=== PATIENT | male | born 1990 | race Caucasian/White ===

== ENCOUNTER 2020-10-11 16:03 | Emergency (ER) | payer OTHER ==
[~2020-10-11] VITALS: Ht 170.2 cm; Wt 86.2 kg
[2020-10-11 16:03] VITALS: BP 108/80
[2020-10-11] MEDS ORDERED: BUPR-54 PO (16:48)
[2020-10-11] MEDS ORDERED: CEFEPIME 1 GM in IV D5W 50 ML IV ONE (17:00)
[2020-10-11] MEDS ORDERED: IV NS 0.9% 1,000 ML BAG IV ONE ×2 (17:00)
[2020-10-11] MEDS ORDERED: VANCOMYCIN 1 GM in IV D5W 250 ML IV ONE (17:00)
--- NOTE | 2020-10-11 17:03 | NUR ---
BIB SELF C/O [facility] ABSCESS X 1 WEEK. AAOX4, VSS. RR EVEN & UNLABORED. DENIES CP, SOB, DIZZINESS, N/V AT THIS TIME. PT SEEN & EVAL'D BY DR. FONSECA. WILL CONT TO MONITOR.
--- NOTE | 2020-10-11 17:25 | NUR ---
MEDICATED PER ERMD ORDER, PT DESIREE WELL. WILL CONT TO MONITOR.
[2020-10-11 17:27] LABS: BASOPHILS % (AUTO) 0.3 % (0.0-2.0); EOSINOPHILS % (AUTO) 0.9 % (0.0-6.0); HEMATOCRIT 37 % (39-51); HEMOGLOBIN 12.2 g/dL (13.5-17.5); LYMPHOCYTES # (AUTO) 1.4 /CMM (0.8-4.8); LYMPHOCYTES % (AUTO) 10.3 % (20.0-44.0); MEAN CORPUSCULAR HGB CONC 33 g/dl (31.0-36.0); MEAN CORPUSCULAR VOLUME 84 fL (80-96); MONOCYTES # (AUTO) 1.2 /CMM (0.1-1.30); MONOCYTES % (AUTO) 8.4 % (2.0-12.0); NEUTROPHILS # (AUTO) 11.3 /CMM (1.8-8.9); NEUTROPHILS % (AUTO) 80.1 % (43.0-81.0); PLATELET COUNT (AUTO) 238 /CMM (150-450); RED BLOOD CELL COUNT(AUTO) 4.37 MIL/uL (4.5-6.0); WHITE BLOOD COUNT (AUTO) 14.1 K/uL (4.3-11.0)
[2020-10-11 17:53] LABS: CARBON DIOXIDE 31 mmol/L (21-32); CHLORIDE 98 mmol/L (98-107); GLUCOSE 102 mg/dL (74-106); POTASSIUM 3.2 mmol/L (3.5-5.1); SODIUM SERUM 135 mmol/L (136-145); UREA NITROGEN, BLOOD 12 mg/dL (7-18)
[2020-10-11 17:59] LABS: ALANINE AMINOTRANSFERASE 11 U/L (12-78); ALBUMIN 2.8 g/dL (3.4-5.0); ALKALINE PHOSPHATASE 78 U/L (46-116); ASPARTATE AMINOTRANSFERASE 14 U/L (15-37); BILIRUBIN,DIRECT 0.3 mg/dL (0.0-0.2); BILIRUBIN,TOTAL 0.8 mg/dL (0.2-1.0)
--- NOTE | 2020-10-11 18:02 | NUR ---
PT SIGNED AMA FORM. REFUSED VANCOMYCIN IVPB. ERMD AWARE. IV removed. Catheter intact and site benign. Pressure and 4x4 applied to site. No bleeding noted.
== END 2020-10-11 18:12 | disposition left against medical advice (07) ==
LOC: ER 16:07
DX: A41.9 Sepsis, unspecified organism (principal); L03.114 Cellulitis of left upper limb; L02.414 Cutaneous abscess of left upper limb; L03.113 Cellulitis of right upper limb; L02.413 Cutaneous abscess of right upper limb; R00.0 Tachycardia, unspecified; Z79.899 Other long term (current) drug therapy
CPT/HCPCS: 36415; 71045; 80048; 80076; 83605; 84145; 84484; 85025; 85730; 87040 ×2; 93005; 96365; 99291; J0692; J7030 ×2; J7060; J3370

== ENCOUNTER 2022-02-18 10:21 | Emergency (ER) | payer OTHER ==
[~2022-02-18] VITALS: Ht 170.2 cm; Wt 90.7 kg
[~2022-02-18 10:21] MED LIST: BUPR-54 PO
[2022-02-18 10:25] VITALS: BP 131/75
[2022-02-18] MEDS ORDERED: SULF1TAB48 PO (10:44)
[2022-02-18] MEDS ORDERED: IBUP-1955 PO (10:44)
[2022-02-18] MEDS ORDERED: CEPH500C2 PO (10:44)
[2022-02-18] MEDS ORDERED: SULFAMETH/TRIMETH 800/160 MG 1 UDTAB TABLET ONE (10:45)
[2022-02-18] MEDS ORDERED: BACI/NEOM/POLY B OINT PKT 1 UDPKT PACKET ONE (10:45)
[2022-02-18] MEDS ORDERED: CEPHALEXIN MONOHYDRATE 500 MG CAPSULE PO ONE ×2 (10:45→11:00)
--- NOTE | 2022-02-18 10:50 | NUR ---
dried scabs noted on BLE > on Left Leg. Medicated as ordered- tolerated well [employer] remains at bedside
[2022-02-18] MEDS ORDERED: BACI/NEOM/POLY B OINT PKT 1 UDPKT PACKET TP ONE (11:00)
[2022-02-18] MEDS ORDERED: SULFAMETH/TRIMETH 800/160 MG 1 UDTAB TABLET PO ONE (11:00)
--- NOTE | 2022-02-18 11:11 | NUR ---
seen and evaluated. medically cleared, was provided with wound care. discharged to [facility] in stable condition.
== END 2022-02-18 11:30 ==
LOC: ER 11:28
DX: L03.116 Cellulitis of left lower limb (principal); F15.10 Other stimulant abuse, uncomplicated; Z59.00 Homelessness unspecified; Z79.899 Other long term (current) drug therapy

== ENCOUNTER 2024-08-14 20:07 | Emergency (ER) | payer OTHER ==
[~2024-08-14] VITALS: Ht 175.3 cm; Wt 95.3 kg
[~2024-08-14 20:07] MED LIST changes: +CEPH500C2 PO; +IBUP-1955 PO; +SULF1TAB48 PO
[2024-08-14] MEDS ORDERED: NALOXONE PREFILLED SYRINGE 2 MG/2 ML SYRINGE ONE (23:44)
[2024-08-15] MEDS: IV NS 0.9% 1,000 ML IV ONE ×2 (00:03→00:26)
[2024-08-15 00:04] LABS: BASOPHILS # (AUTO) 0.1 K/uL (0.0-0.2); BASOPHILS % (AUTO) 0.8 % (0.0-2.0); EOSINOPHILS # (AUTO) 0.1 K/uL (0.0-0.7); EOSINOPHILS % (AUTO) 1.4 % (0.0-6.0); HEMATOCRIT 41 % (39-51); HEMOGLOBIN 14.2 g/dL (13.5-17.5); LYMPHOCYTES # (AUTO) 2.2 K/uL (0.8-4.8); LYMPHOCYTES % (AUTO) 34.8 % (20.0-44.0); MEAN CORPUSCULAR HEMOGLOBIN 30 PG (26.0-33.0); MEAN CORPUSCULAR HGB CONC 35 g/dl (31.0-36.0); MEAN CORPUSCULAR VOLUME 86 fL (80-96); MONOCYTES # (AUTO) 0.6 K/uL (0.1-1.30); MONOCYTES % (AUTO) 9.3 % (2.0-12.0); NEUTROPHILS # (AUTO) 3.4 K/uL (1.8-8.9); NEUTROPHILS % (AUTO) 53.7 % (43.0-81.0); PLATELET COUNT (AUTO) 208 K/uL (150-450); RED BLOOD CELL COUNT(AUTO) 4.76 MIL/uL (4.5-6.0); RED CELL DISTRIBUTION WIDTH 14.3 % (11.5-15.0); WHITE BLOOD COUNT (AUTO) 6.4 K/uL (4.3-11.0)
[2024-08-15] MEDS: NALOXONE HCL 0.4 MG/ML AMPUL IV ONE (00:04)
[2024-08-15 00:14] LABS: BARBITURATE, URINE NEGATIVE (NEGATIVE); BENZODIAZEPINE, URINE NEGATIVE (NEGATIVE); CANNABINOID, URINE NEGATIVE (NEGATIVE); COCCAINE, URINE NEGATIVE (NEGATIVE); OPIATE, URINE NEGATIVE (NEGATIVE); PHENCYCLIDINE SCREEN,URINE NEGATIVE (NEGATIVE)
[2024-08-15 00:18] LABS: ALANINE AMINOTRANSFERASE 27 U/L (12-78); ALBUMIN 3.7 g/dL (3.4-5.0); ALCOHOL, BLOOD < 3 mg/dL (0-10); ALKALINE PHOSPHATASE 73 U/L (46-116); ASPARTATE AMINOTRANSFERASE 36 U/L (15-37); BILIRUBIN,TOTAL 0.7 mg/dL (0.2-1.0); CALCIUM, SERUM 8.5 mg/dL (8.5-10.1); CARBON DIOXIDE 32 mmol/L (21-32); CHLORIDE 106 mmol/L (98-107); CREATININE 1.2 mg/dL (0.6-1.3); GLUCOSE 111 mg/dL (74-106); SODIUM SERUM 140 mmol/L (136-145); TOTAL PROTEIN, SERUM 6.9 g/dL (6.4-8.2); UREA NITROGEN, BLOOD 28 mg/dL (7-18)
[2024-08-15 00:19] LABS: APPEARANCE,URINE CLEAR (CLEAR); BILIRUBIN,URINE NEGATIVE (NEGATIVE); BLOOD, URINE NEGATIVE Ery/uL (NEGATIVE); COLOR,URINE YELLOW (YELLOW); KETONES,URINE NEGATIVE (NEGATIVE); LEUKOCYTE ESTERASE ,URINE NEGATIVE (NEGATIVE); NITRITE, URINE NEGATIVE (NEGATIVE); PH,URINE 5.5 (5.0-8.0); PROTEIN,URINE NEGATIVE (NEGATIVE); UGLUCOSE NEGATIVE (NEGATIVE); UROBILINOGEN,URINE 0.2 EU/dL (0.2)
[2024-08-15 00:44] LABS: AMPHETAMINE, URINE POSITIVE (NEGATIVE)
[2024-08-15 07:35] VITALS: BP 147/86; TEMP 99.4; O2SAT 95
== END 2024-08-15 19:18 ==
LOC: ER 20:09
DX: F19.10 Other psychoactive substance abuse, uncomplicated (principal); R94.31 Abnormal electrocardiogram [ECG] [EKG]; Z59.00 Homelessness unspecified
CPT/HCPCS: 99285; 93005; 85025; 83605; 81003; 36415; 80053; 80320; 80307; 96374; 96361; J2310; J7030; G0480

== ENCOUNTER 2024-10-24 22:50 | Emergency (ER) | payer OTHER ==
[~2024-10-24] VITALS: Ht 185.4 cm; Wt 83.9 kg
[2024-10-24 23:01] VITALS: TEMP 98.9
[2024-10-24] MEDS ORDERED: AMLO10TA4 PO (23:12)
[2024-10-24] MEDS ORDERED: AMLODIPINE BESYLATE 5 MG TABLET PO ONE (23:30)
[2024-10-24] MEDS ORDERED: AMLODIPINE BESYLATE 10 MG TABLET ONE (23:41)
[2024-10-24 23:42] VITALS: BP 158/101
[2024-10-24] MEDS: AMLODIPINE BESYLATE 5 MG TABLET PO ONE (23:42)
[2024-10-24 23:48] VITALS: O2SAT 95
== END 2024-10-24 23:49 ==
LOC: ER 23:01
DX: I10 Essential (primary) hypertension (principal); R07.89 Other chest pain; Z59.00 Homelessness unspecified; Z79.899 Other long term (current) drug therapy